=== PATIENT | female | born 1945 | race Caucasian/White ===

== ENCOUNTER 2019-06-23 11:29 | Emergency (ER) | payer OTHER ==
[~2019-06-23] VITALS: Ht 152.4 cm; Wt 61.2 kg
[2019-06-23 11:40] VITALS: Ht 152.4 cm; Wt 61.2 kg
[2019-06-23 13:14] VITALS: BP 138/71
== END 2019-06-23 13:14 | disposition home or self-care (01) ==
LOC: ED 11:29
DX: S30.0XXA Contusion of lower back and pelvis, initial encounter (principal); Z88.6 Allergy status to analgesic agent; Z98.890 Other specified postprocedural states; W08.XXXA Fall from other furniture, initial encounter; Y93.89 Activity, other specified; Y92.89 Other specified places as the place of occurrence of the external cause; Y99.8 Other external cause status
CPT/HCPCS: 72072